=== PATIENT | female | born 1995 | race Caucasian/White ===

== ENCOUNTER 2017-07-18 11:28 | Emergency (ER) | END 2017-07-18 18:05 | disposition home or self-care (01) ==

== ENCOUNTER 2017-11-17 10:50 | Inpatient (IN) | END 2017-11-18 14:30 | disposition home or self-care (01) | DRG 781 ==

== ENCOUNTER 2018-01-09 14:54 | Outpatient (CLI) | END 2018-01-09 18:10 | disposition home or self-care (01) ==

== ENCOUNTER 2018-01-20 16:00 | Inpatient (IN) | END 2018-01-25 15:20 | disposition home or self-care (01) | DRG 775 ==